=== PATIENT | male | born 1955 | race Caucasian/White ===

== ENCOUNTER → 2016-10-09 | Outpatient (CLI) | payer BC ==
[~2016-10-09] MED LIST: ASPCH81; BNC40 PO; HMLI SC; LRT5 PO; MULTI VITAMIMINERALS OR; SIMV10TA2 PO
== END | disposition home or self-care (01) ==
LOC: C.PATHSPEC 13:41
PROVIDERS: ATTEND Plastic Surgery
DX: D03.61 Melanoma in situ of right upper limb, including shoulder (principal)

== ENCOUNTER → 2017-01-08 | Outpatient (CLI) | payer BC | END | disposition home or self-care (01) | LOC: C.LABSPEC 17:18 | PROVIDERS: ATTEND Urology | DX: R30.0 Dysuria (principal) ==

== ENCOUNTER → 2017-01-23 | Outpatient (CLI) | payer BC | END | disposition home or self-care (01) | LOC: C.LABSPEC 16:32 | PROVIDERS: ATTEND Nurse Practitioner Family | DX: N50.819 Testicular pain, unspecified (principal); N45.1 Epididymitis ==

== ENCOUNTER → 2017-02-19 | Outpatient (CLI) | payer BC ==
--- NOTE | 2017-02-28 07:38 | CODING QUERY NO DIAGNOSIS ---
TREATMENT RENDERED WITHOUT A DIAGNOSIS To promote full compliance with coding requirements relating to patient care, physician participation is requested in all cases of hcc coders uncertainty. Please assist us with providing a diagnosis/symptom for the test(s) below: A diagnosis/symptom was not documented on your Order. A valid diagnosis/symptom is required to bill all insurances. Please remember that we are unable to code a diagnosis of rule out, probable, possible, questionable, or suspected. Tests that require a diagnosis: * LEAH NIEVES OF CHEST DIAGNOSIS: * DOS: 02/19/17 Provider Signature: Date: Thank you Theresa Crandall Health Information Management Once completed, please kindly fax back to [phone] For questions please call [phone]
== END | disposition home or self-care (01) ==
LOC: C.PATHSPEC 16:49
PROVIDERS: ATTEND Dermatology
DX: Z01.89 Encounter for other specified special examinations (principal)

== ENCOUNTER → 2017-04-11 | Outpatient (CLI) | payer BC ==
[2017-04-11 10:54] LABS: ALT/SGPT 26 U/L (12-78); AST/SGOT 20 U/L (15-37); BLOOD UREA NITROGEN 23 mg/dl (7-18); BUN/CREATININE RATIO 24.1 (10-20); CALCIUM 8.4 mg/dl (8.5-10.1); CARBON DIOXIDE 31 mmol/L (21-32); CHLORIDE 101 mmol/L (98-107); CREATININE 0.96 mg/dl (0.60-1.40); GLUCOSE 141 mg/dl (70-99); POTASSIUM 4.2 mmol/L (3.5-5.1); SODIUM 137 mmol/L (136-145)
[2017-04-11 11:05] LABS: ALB/GLOB RATIO 1.2 (0.9-2); ALKALINE PHOSPHATASE 101 U/L (45-117); CHOLESTEROL 122 mg/dl (0-200); CHOLESTEROL/HDL RATIO 1.9; HDL CHOLESTEROL 64 mg/dl; LDL CHOLESTEROL CALCULATED 45 mg/dl; TRIGLYCERIDES 63 mg/dl (0-150); VERY LOW DENSITY LIPOPROT CALC 13 mg/dl
[2017-04-12 07:40] LABS: ESTIMATED AVERAGE GLUCOSE 140 mg/dl; HA1C FLAG Normal (Normal)
== END | disposition home or self-care (01) ==
LOC: C.LAB 09:20
PROVIDERS: ATTEND Nurse Practitioner Adult Health
DX: E10.9 Type 1 diabetes mellitus without complications (principal); E78.5 Hyperlipidemia, unspecified; I10 Essential (primary) hypertension

== ENCOUNTER → 2017-04-23 | Outpatient (CLI) | payer BC | END | disposition home or self-care (01) | LOC: C.LABSPEC 16:56 | PROVIDERS: ATTEND Nurse Practitioner Adult Health | DX: N39.0 Urinary tract infection, site not specified (principal) ==

== ENCOUNTER → 2017-06-03 | Day surgery (SDC) | payer BC, OTHER ==
[2017-05-21 15:14] VITALS: BMI 23.0
--- NOTE | 2017-05-21 15:52 | PAT Medication Instructions ---
Service Date May 21, 2017. Current Home Medication List , 1 TAB PO QAM Acetaminophen (Tylenol), 500-1,000 MG PO PRN Alfuzosin Hcl (Uroxatral), 10 MG PO HS Aspirin (Aspirin Ec), 81 MG PO HS Atorvastatin (Lipitor), 10 MG PO HS Calcipotriene (Calcipotriene), 1 DOSE TOP QAM Cholecalciferol (Vitamin D3), 1 TAB PO BID Finasteride (Proscar), 5 MG PO QAM Ibuprofen (Ibuprofen), 200-400 MG PO PRN Insulin Aspart (novoLOG INSULIN PUMP ), 1 EA N/A UD Insulin Glargine (Lantus), 18 UNITS INJ HS PRN for D Losartan Potassium (Cozaar), 1 TAB PO QAM Metoprolol Succ (Toprol Xl) (Toprol-Xl), 25 MG PO QAM Medication Instructions For Your Scheduled Surgery - Check with surgeon for instructions: Ibuprofen (Ibuprofen), 200-400 MG PO PRN Aspirin (Aspirin Ec), 81 MG PO HS - Hold the following medications 24 hours prior to surgery: Calcipotriene (Calcipotriene), 1 DOSE TOP QAM - Hold the following medications the morning of surgery: Cholecalciferol (Vitamin D3), 1 TAB PO BID Finasteride (Proscar), 5 MG PO QAM Losartan Potassium (Cozaar), 1 TAB PO QAM - Take the following medications the morning of surgery with a sip of water: Metoprolol Succ (Toprol Xl) (Toprol-Xl), 25 MG PO QAM Acetaminophen (Tylenol), 500-1,000 MG PO PRN (okay to take up to 4 hours prior to surgery if needed) - Take the following medications as scheduled the night before surgery: Insulin Glargine (Lantus), 18 UNITS INJ HS PRN for D (uses only if insulin pump "fails") Cholecalciferol (Vitamin D3), 1 TAB PO BID Atorvastatin (Lipitor), 10 MG PO HS Alfuzosin Hcl (Uroxatral), 10 MG PO HS Acetaminophen (Tylenol), 500-1,000 MG PO PRN - For Insulin Dependent Diabetic patients: - Insulin Aspart (novoLOG INSULIN PUMP ), 1 EA N/A UD-- Continue basal setting AM day of surgery; do not use bolus setting. If you have any questions please call us at [phone] or [phone] or [phone]
[2017-05-21 16:23] LABS: BASO % 0.3 %; BASO ABS # 0.02 K/uL (0-0.2); EOS % 1.8 %; EOS ABS # 0.12 K/uL (0-0.5); HEMATOCRIT 40.8 % (42-52); HEMOGLOBIN 13.8 g/dL (14.0-18.0); IG# 0.01 K/uL (0.00-0.02); LYMPH % 26.9 %; LYMPH ABS # 1.83 K/uL (1.2-3.4); MEAN CELL VOLUME 86.1 fL (80-100); MEAN CORPUSCULAR HEMOGLOBIN 29.1 pg (25-34); MEAN CORPUSCULAR HGB CONC 33.8 g/dl (32-36); MEAN PLATELET VOLUME 9.7 fL (7.4-10.4); MONO ABS # 0.41 K/uL (0.11-0.59); NEUT % 64.9 %; NEUT ABS # 4.41 K/uL (1.4-6.5); PLATELET COUNT 229 K/uL (130-400); RED CELL DISTRIBUTION WIDTH SD 40.9 fL (36.4-46.3)
--- NOTE | 2017-05-21 16:39 | DIAGNOSTIC IMAGING REPORT ---
CHEST 2 VIEWS ROUTINE HISTORY: 62 years-old Male PAT preoperative exam. No acute chest complaints. COMPARISON: Chest radiographs 04/28/2009 TECHNIQUE: PA and lateral views of the chest FINDINGS: Cardiomediastinal and hilar silhouettes are within normal limits. No pneumothorax, pleural effusion, focal airspace consolidation or overt pulmonary edema. Bones of the chest are grossly intact. Multilevel degenerative changes of the midthoracic spine. IMPRESSION: No acute process. The above report was generated using voice recognition software. It may contain grammatical, syntax or spelling errors. Electronically signed by: Barry Clark M.D. 05/21/2017 4:37 PM Dictated Date/Time: 05/21/2017 4:36 PM
[2017-05-21 16:45] LABS: CREATININE 0.78 mg/dl (0.60-1.40); POTASSIUM 4.1 mmol/L (3.5-5.1)
[~2017-06-03] VITALS: Ht 170.2 cm; Wt 68.7 kg
[~2017-06-03] MED LIST changes: +ACET-1256 PO; +ALFU10TA2 PO; -ASPCH81; +ASPI81TA28 PO; +ATOR10TA82 PO; +ATROPINE SULFATE 0.1 MG/ML 5ML SYR IV PRN; -BNC40 PO; +CALC1CRE2 TOP; +CHOL1000 PO; +CIPR-255 PO; +CIPROFLOXACIN / D5W 400 MG IV SCH; +EpHEDrine SULFATE INJ 50 MG/ML AMP IV PRN; +FINA5TAB PO; -HMLI SC; +IBUP1CAP9 PO; +INSDGI INJ; +INSPMPNVLG; +LACTATED RINGER'S 1000ML 1,000 ML IV SCH; +LIDOCAINE HCL 2% 2 ML VIAL (20MG/ML) ONE; +LOSA50TA6 PO; -LRT5 PO; +METO25TA3 PO; -MULTI VITAMIMINERALS OR; +MULTI VITAMIMINERALS PO; +OXYC7.5T65 PO; +OXYCODONE/ACETAMINOPHEN 5-325 TAB ONE; +OXYCODONE/ACETAMINOPHEN 5-325 TAB PO PRN; +PHEN-775 PO; +PHENAZOPYRIDINE HCL 200 MG TAB PO PRN; +PROPOFOL IV EMULSION 10 MG/ML 20 ML VIAL IV ONE; -SIMV10TA2 PO
[2017-06-03 07:55] VITALS: BP 146/74; PULSE 76; TEMP 36.7; O2SAT 95; Ht 170.2 cm; Wt 68.7 kg
--- NOTE | 2017-06-03 08:33 | History & Physical Bridge Note ---
H&P Re-Evaluation Bridge Note: I have examined the patient, reviewed the History & Physical and in the interval since the performance of the History & Physical I have noted the following changes of clinical significance: No changes noted
--- NOTE | 2017-06-03 08:59 | Discharge Instructions ---
Discharge Instructions Date of Service Jun 03, 2017. Admission Reason for Admission: Benign Prostatic Hyperplasia Discharge Discharge Diagnosis / Problem: BPH s/p Urolift Discharge Goals Goal(s): Improve function, Improve disease control, Therapeutic intervention Activity Recommendations Activity Limitations: as noted below Lifting Limitations: no more than 25 pounds, gradually increase as tolerated Exercise/Sports Limitations: rest today, gradually increase as tolerated May Resume Sexual Activity: after follow-up appointment Shower/Bathe: no limitations Driving or Machine Use: resume 1 day after discharge . Instructions / Follow-Up Instructions / Follow-Up As scheduled in office Current Hospital Diet Patient's current hospital diet: Discharge Diet Recommended Diet: Regular Diet (good fluid intake) Procedures Procedures Performed: Cystoscopy, Urolift Pending Studies Studies pending at discharge: no Laboratory Results Hemoglobin A1c Test 04/11/17 09:35 Range/Units Estimated Average Glucose 140 mg/dl Hemoglobin A1c 6.5 H 4.5-5.6 % Lipid Panel Test 04/11/17 09:35 Range/Units Triglycerides Level 63 0-150 mg/dl Cholesterol Level 122 0-200 mg/dl HDL Cholesterol 64 mg/dl Cholesterol/HDL Ratio 1.9 LDL Cholesterol, Calculated 45 mg/dl Medical Emergencies . Who to Call and When: Medical Emergencies: If at any time you feel your situation is an emergency, please call 911 immediately. . Non-Emergent Contact Non-Emergency issues call your: Urologist Call Non-Emergent contact if: you have a fever, temperature is above 101, your pain is not controlled, your pain is worsening, your pain is unusual for you, your pain is concerning you, you have any medication questions . . "Provider Documentation" section prepared by Eb Lugo. . VTE Core Measure Inpt VTE Proph given/why not?: SCD's [place] Drug Monitoring Program Search Results: patient reviewed within database, no issues identified
--- NOTE | 2017-06-03 09:00 | [facility] Post Operative Brief Note ---
Immediate Operative Summary Operative Date Jun 03, 2017. Pre-Operative Diagnosis BPH Post-Operative Diagnosis Same Procedure(s) Performed Cystoscopy, Urolift Surgeon Parish Lazaro Digital Advertising Analyst Surgeon(s) NA Estimated Blood Loss NA Findings Open prostatic urethra after Urolift x 4 Specimens NA Drains N A Anesthesia MAC Complication(s) None Disposition Recovery Room / PACU
--- NOTE | 2017-06-03 10:25 | Anesthesiology Progress Note ---
Anesthesia Post Op Note Date & Time Jun 03, 2017 at 10:25 Vital Signs Pain Intensity: 0 Vital Signs Past 12 Hours Date Time Temp Pulse Resp B/P (MAP) Pulse Ox O2 Delivery O2 Flow Rate FiO2 06/03/17 07:55 36.7 76 20 146/74 (98) 95 Room Air Notes Mental Status: alert / awake / arousable, participated in evaluation Pt Amnestic to Procedure: Yes Nausea / Vomiting: adequately controlled Pain: adequately controlled Airway Patency, RR, SpO2: stable & adequate BP & HR: stable & adequate Hydration State: stable & adequate Anesthetic Complications: no major complications apparent
--- NOTE | 2017-06-03 10:33 | [facility] Operative Report ---
Operative Report Operative Date Jun 03, 2017. Pre-Operative Diagnosis Benign Prostate Hypertrophy Post-Operative Diagnosis Benign Prostate Hypertrophy Procedure(s) Performed Cystoscopy, Urolift Surgeon Parish Lazaro Life Skills Consultant Surgeon(s) NA Estimated Blood Loss NA Findings Open prostatic fossa after placement of 4 Urolift tacks Specimens NA Drains N A Anesthesia MAC Complication(s) None Disposition Recovery Room / PACU Indications 62-year-old male with persistent voiding symptoms was chosen Urolift to manage his disease. Please see H&P for further details. Ciprofloxacin used for antibiotic coverage and SCDs used for DVT prophylaxis. Description of Procedure Patient was properly identified and brought into the operative suite after identification of appropriate consent of the chart. Monitored anesthesia care with sedation was initiated and patient was prepped and draped in the standard fashion for this procedure. Full timeout procedure was followed. Urolift scope was inserted into the bladder using the visual obturator and bladder was inspected demonstrating ureteral orifices well removed from the bladder neck and grade 1-2 trabeculation. No intravesical calculi or papillary masses were appreciated. Urolift tacks were placed first on the left and right side at the level of the verumontanum with excellent opening of the distal prostatic fossa. This was repeated at the level of the bladder neck with completion of an anterior channel for unobstructed voiding. Excellent placement of the tacks was appreciated. Bladder was drained and cystoscope was removed. Anesthesia was reversed and patient was transferred to the recovery room in stable condition. Follow-up care: Patient will be discharged home after voiding. Prescription for ciprofloxacin, Pyridium and Percocet are provided in the chart. Outpatient appointment is confirmed. Patient is to contact us with any difficulties after his surgery. I attest to the content of the Intraoperative Record and any orders documented therein. Any exceptions are noted below.
[2017-06-03 10:45] VITALS: BP 120/77; PULSE 73; TEMP 36.8; O2SAT 97
[2017-06-03 11:15] VITALS: BP 172/84; PULSE 78; O2SAT 99
[2017-06-03 11:45] VITALS: BP 143/81; PULSE 62; TEMP 36.7; O2SAT 98
== END | disposition home or self-care (01) ==
LOC: C.ACU 07:29
PROVIDERS: ATTEND Urology
DX: N40.1 Benign prostatic hyperplasia with lower urinary tract symptoms (principal); N13.8 Other obstructive and reflux uropathy; N52.9 Male erectile dysfunction, unspecified; N39.0 Urinary tract infection, site not specified; I10 Essential (primary) hypertension; E78.5 Hyperlipidemia, unspecified; E10.9 Type 1 diabetes mellitus without complications; Z79.4 Long term (current) use of insulin; Z96.41 Presence of insulin pump (external) (internal); Z85.820 Personal history of malignant melanoma of skin; Z87.891 Personal history of nicotine dependence; Z98.890 Other specified postprocedural states; Z88.1 Allergy status to other antibiotic agents; Z98.52 Vasectomy status; Z79.82 Long term (current) use of aspirin; Z79.899 Other long term (current) drug therapy; Z80.42 Family history of malignant neoplasm of prostate; Z82.49 Family history of ischemic heart disease and other diseases of the circulatory system